=== PATIENT | female | born 1960 | race Caucasian/White ===

== ENCOUNTER 2016-05-28 08:34 | Inpatient (IN) ==
[2016-05-28] MEDS ORDERED: VANCOMYCIN 1 GM/NS 1 GM/250 ML IVPB ONE (09:32)
[2016-05-28] MEDS ORDERED: LR 1,000 ML ONE (09:32)
[2016-05-28] MEDS ORDERED: NAROPIN 0.5% ONE (11:36)
[2016-05-28] MEDS: DILAUDID ONE ×4 (12:38→13:23)
[2016-05-28] MEDS ORDERED: LR 500 ML ONE (12:43)
[2016-05-28] MEDS ORDERED: VERSED ONE (13:31)
[2016-05-28] MEDS ORDERED: FENTANYL ONE (13:31)
[2016-05-28] MEDS ORDERED: DIPRIVAN 1% ONE (13:31)
[2016-05-28] MEDS ORDERED: NS 1,000 ML ONE (13:40)
[2016-05-28] MEDS ORDERED: ZOFRAN IV PRN (13:53)
[2016-05-28] MEDS ORDERED: XYLOCAINE-MPF 2% ONE (13:54)
[2016-05-28] MEDS: NS 1,000 ML IV SCH (14:30)
[2016-05-28] MEDS: NICODERM PATCH TD SCH (16:01)
--- NOTE | 2016-05-28 16:22 | OPERATIVE NOTE ---
PROCEDURE DATE: 05/28/2016 PROCEDURE: 1. Incision and drainage of left great toe subcutaneous abscess. 2. Excision of portion of ingrown nail laterally. SURGEON: Atul Cleveland MD. TEACHING DIETITIAN: Rose. PREOPERATIVE DIAGNOSIS: Infected left great toe with ingrown nail, lateral aspect. POSTOPERATIVE DIAGNOSIS: Infected left great toe with ingrown nail, lateral aspect. DESCRIPTION OF PROCEDURE: Satisfactory general anesthesia was achieved. A digital block was also used for pain relief by the anesthesiologist. The left foot was prepped and draped in a sterile fashion. There was contained pus underneath the skin at the lateral aspect of the nail distally. We incised that skin, exposed the underlying pus and cultured it. We excised away the overlying skin. Because of the ischemia to her toe, I chose not to excise any tissue or do any dissection of the lateral eponychium. We simply spread underneath the eponychium laterally and then slid a hemostat underneath the nail. We incised the nail all the way to its proximal extent and removed it. This thereby relieved the ingrowing of the nail underneath the tissue. I did not do any curetting. Did not incise the soft tissue in any way. We irrigated out the wound. We then covered with Xeroform gauze, followed by sterile 3 inch [place]. She tolerated it well. She was sent to the recovery room in satisfactory condition. cc: Atul Cleveland MD
[2016-05-28] MEDS: AMBIEN PO SCH (20:47)
[2016-05-28] MEDS: REQUIP PO SCH (20:47)
[2016-05-28] MEDS: NORCO-10 PO PRN (20:47)
[2016-05-28] MEDS: ZOCOR PO SCH (20:47)
[2016-05-28] MEDS: XANAX PO SCH (20:48)
[2016-05-28] MEDS: VANCOMYCIN 1 GM/NS 1 GM/250 ML IVPB IV SCH (23:56)
[2016-05-29] MEDS: NORCO-10 PO PRN ×3 (01:57→11:20)
[2016-05-29] MEDS: NS 1,000 ML IV SCH (06:52)
[2016-05-29] MEDS: NICODERM PATCH TD SCH (08:50)
[2016-05-29] MEDS: LOTENSIN PO SCH (08:51)
[2016-05-29] MEDS: SINGULAIR PO SCH (08:51)
[2016-05-29] MEDS: NORVASC PO SCH (08:51)
[2016-05-29] MEDS: JANUVIA PO SCH (08:51)
[2016-05-29] MEDS: ASPIRIN PO SCH (08:51)
[2016-05-29] MEDS: MOVANTIK PO SCH (08:51)
[2016-05-29] MEDS: LEVEMIR SUBQ SCH (08:52)
[2016-05-29] MEDS ORDERED: INSULIN PEN NEEDLES ONE (08:56)
[2016-05-29] MEDS: FLONASE NAS SCH (08:58)
[2016-05-29] MEDS ORDERED: REQUIP PO SCH (09:00)
[2016-05-29] MEDS: XANAX PO SCH ×2 (12:10→22:09)
[2016-05-29] MEDS: VANCOMYCIN 1 GM/NS 1 GM/250 ML IVPB IV SCH ×2 (13:19→23:22)
[2016-05-29] MEDS: BUPRENEX IV PRN ×2 (13:45→19:57)
[2016-05-29] MEDS: AMBIEN PO SCH (22:09)
[2016-05-29] MEDS: REQUIP PO SCH (22:09)
[2016-05-29] MEDS: ZOCOR PO SCH (22:09)
[2016-05-29] MEDS ORDERED: DIFLUCAN PO ONE (23:04)
[2016-05-30] MEDS: NS 1,000 ML IV SCH ×2 (04:00→22:13)
[2016-05-30] MEDS: NORCO-10 PO PRN ×3 (04:04→18:03)
[2016-05-30] MEDS ORDERED: DIFLUCAN PO ONE (04:15)
[2016-05-30 06:13] LABS: MANUAL DIFF NEEDED? NO
[2016-05-30] MEDS: BUPRENEX IV PRN (06:16)
[2016-05-30 06:18] LABS: BASO% 0.3 % (0.0-0.8); EOS# 0.21 X1000 (0.0-0.7); EOS% 2.1 % (0.0-10.0); HEMATOCRIT 35.2 % (37.0-47.0); HEMOGLOBIN 11.7 g/dL (12.0-16.0); IMM GRAN# 0.02 X1000 (0.0-0.04); IMM GRAN% 0.2 % (0.0-0.5); LYMPH% 34.7 % (20.5-51.1); MCH 30.5 PG (27-31); MCHC 33.2 g/dL (33-37); MCV 91.7 FL (81-99); MONO% 8.2 % (1.7-9.3); MPV 10.1 FL (7.4-10.4); NEUT% 54.5 % (42.2-75.2); PLT 293 X1000 (130-400); RBC 3.84 XMIL (4.2-5.4)
[2016-05-30 06:43] LABS: AGAP 11; BUN 11 mg/dL (8-22); CALCIUM 8.4 mg/dL (8.8-10.2); CHLORIDE 106 mmol/L (98-107); COSMO 284; POTASSIUM 3.1 mmol/L (3.5-5.1); SODIUM 141 mmol/L (136-145); TCO2 24 mmol/L (25-35)
[2016-05-30] MEDS: JANUVIA PO SCH ×2 (07:57→12:53)
[2016-05-30] MEDS: ASPIRIN PO SCH ×2 (07:58→12:49)
[2016-05-30] MEDS: NORVASC PO SCH ×2 (07:58→12:51)
[2016-05-30] MEDS: MOVANTIK PO SCH ×2 (07:58→08:05)
[2016-05-30] MEDS: SINGULAIR PO SCH ×2 (07:58→12:50)
[2016-05-30] MEDS: LOTENSIN PO SCH ×2 (07:58→12:53)
[2016-05-30] MEDS: FLONASE NAS SCH ×2 (07:58→12:54)
[2016-05-30] MEDS: NICODERM PATCH TD SCH ×2 (07:58→12:52)
[2016-05-30] MEDS: XANAX PO SCH ×2 (07:59→22:12)
[2016-05-30] MEDS: LEVEMIR SUBQ SCH (08:00)
[2016-05-30] MEDS: VANCOMYCIN 1 GM/NS 1 GM/250 ML IVPB IV SCH (11:26)
[2016-05-30] MEDS: REQUIP PO SCH (22:12)
[2016-05-30] MEDS: AMBIEN PO SCH (22:13)
[2016-05-30] MEDS: ZOCOR PO SCH (22:15)
[2016-05-31] MEDS: VANCOMYCIN 1 GM/NS 1 GM/250 ML IVPB IV SCH ×3 (00:27→22:51)
[2016-05-31] MEDS: NS 1,000 ML IV SCH ×2 (03:00→18:43)
[2016-05-31] MEDS: NORCO-10 PO PRN ×4 (03:01→21:44)
[2016-05-31] MEDS: SINGULAIR PO SCH (08:49)
[2016-05-31] MEDS: JANUVIA PO SCH (08:49)
[2016-05-31] MEDS: NORVASC PO SCH (08:49)
[2016-05-31] MEDS: ASPIRIN PO SCH (08:50)
[2016-05-31] MEDS: MOVANTIK PO SCH (08:51)
[2016-05-31] MEDS: FLONASE NAS SCH (08:51)
[2016-05-31] MEDS: LEVEMIR SUBQ SCH (08:51)
[2016-05-31] MEDS: LOTENSIN PO SCH (08:52)
[2016-05-31] MEDS: NICODERM PATCH TD SCH (08:53)
[2016-05-31] MEDS: XANAX PO SCH ×2 (09:02→21:44)
[2016-05-31] MEDS: REQUIP PO SCH (21:44)
[2016-05-31] MEDS: ZOCOR PO SCH (21:44)
[2016-05-31] MEDS: AMBIEN PO SCH (21:44)
[2016-06-01] MEDS: BUPRENEX IV PRN ×6 (02:01→23:54)
[2016-06-01] MEDS: NS 1,000 ML IV SCH (02:42)
[2016-06-01] MEDS: FLONASE NAS SCH (08:57)
[2016-06-01] MEDS: NICODERM PATCH TD SCH (08:57)
[2016-06-01] MEDS: LOTENSIN PO SCH (09:00)
[2016-06-01] MEDS: JANUVIA PO SCH (09:00)
[2016-06-01] MEDS: MOVANTIK PO SCH (09:00)
[2016-06-01] MEDS: ASPIRIN PO SCH (09:00)
[2016-06-01] MEDS: NORVASC PO SCH (09:00)
[2016-06-01] MEDS: SINGULAIR PO SCH (09:00)
[2016-06-01] MEDS: LEVEMIR SUBQ SCH (09:00)
[2016-06-01] MEDS: XANAX PO SCH ×2 (09:00→21:18)
[2016-06-01] MEDS: VANCOMYCIN 1 GM/NS 1 GM/250 ML IVPB IV SCH ×2 (10:31→22:17)
[2016-06-01] MEDS ORDERED: HEPARIN ONE ×2 (14:51→14:52)
[2016-06-01] MEDS ORDERED: NS 2,000 ML ONE (14:52)
[2016-06-01 17:29] LABS: URINE MICRO REVIEW NEEDED? NO; URINE SOURCE CATH
[2016-06-01 17:33] LABS: BILIRUBIN URINE NEGATIVE (NEGATIVE); BLOOD URINE NEGATIVE (NEGATIVE); COLOR STRAW; GLUCOSE URINE NEGATIVE (NEGATIVE); LEUKOCYTES URINE NEGATIVE (NEGATIVE); NITRITE URINE NEGATIVE (NEGATIVE); PROTEIN URINE NEGATIVE (NEGATIVE); SP GRAVITY URINE 1.009; TURBIDITY URINE CLEAR (CLEAR); UR EPITHELIAL CELLS <10 /HPF (<10); URINE BACTERIA NEGATIVE /HPF; URINE RBC <10 /HPF (<10); URINE WBC <10 /HPF (<10); UROBILINOGEN URINE NORMAL (NORMAL)
[2016-06-01] MEDS ORDERED: NS 1,000 ML IV SCH (18:02)
[2016-06-01] MEDS ORDERED: DIPRIVAN 1% ONE (18:15)
[2016-06-01] MEDS: MORPHINE ONE ×2 (18:28→18:36)
[2016-06-01] MEDS: AMBIEN PO SCH (21:17)
[2016-06-01] MEDS: REQUIP PO SCH (21:17)
[2016-06-01] MEDS: ZOCOR PO SCH (21:18)
[2016-06-01] MEDS ORDERED: BLISTEX MEDICATED BERRY LIP BALM TOP PRN (21:20)
[2016-06-01] MEDS: PERIDEX MT SCH (22:17)
[2016-06-01] MEDS: NORCO-10 PO PRN (22:18)
[2016-06-02] MEDS: NORCO-10 PO PRN (03:13)
--- NOTE | 2016-06-02 05:09 | OPERATIVE NOTE ---
PROCEDURE DATE: 06/01/2016 PROCEDURE: 1. Diagnostic aortogram; percutaneous balloon angioplasty of the distal aorta. 2. Percutaneous left common iliac stent placement with a 7 x 29 Cat Stent. SURGEON: Atul Cleveland MD. PRINTED CIRCUIT BOARD DESIGNER: Maulik Munguia MD, who has assisted in access and balloon angioplasty. PREOPERATIVE DIAGNOSIS: Recurrent claudication. POSTOP DIAGNOSIS: Aortic in-stent occlusion; left common iliac stenosis. DESCRIPTION OF PROCEDURE: After satisfactory general endotracheal anesthesia, the abdomen and groins were prepped and draped in a sterile fashion. We imaged the right common femoral with ultrasound. Made a small stab incision and accessed the right common femoral artery. Passed the 6-Faroese sheath. We then passed a Glidewire, which would not traverse the aorta. We then used a trailblazer and was able to traverse the aortic occlusion into the proximal aorta. We then switched from the Trailblazer to a pigtail and shot the aortogram. This showed occlusion of the aorta inside this previously placed stent, as well as the left common iliac stenosis. We then went back to her Glidewire and then serially dilated the aortic occlusion with a 6, then an 8, then a 10 x 4 Powerflex balloon. We then accessed the left common femoral with ultrasound guidance and passed a 6-Faroese sheath. We passed the Glidewire up the aorta and then chose a 6 x 4 balloon and ballooned the proximal common iliac but this did not provide significant resolution of the proximal common iliac stenosis. So, we then chose a 7 x 29 Cat balloon expandable stent and passed it up to the bifurcation and deployed it. We then replaced our pigtail and shot a completion aortogram. This showed satisfactory improvement in the in-stent occlusion. Now there was obvious lumen. It did not completely normalize, but it was significantly improved. The patient already had a stent in the aorta and I chose not to Re stent it. The left common iliac stenosis was resolved with the 7 mm stent. We removed our wires and pigtail catheter. We used a Mynx closure plugs on both sides and then after they were appropriately deployed we then applied pressure dressings. She tolerated the procedure satisfactorily. A total of 95 mL of contrast was used. ESTIMATED BLOOD LOSS: Was 25 mL. cc: Atul Cleveland MD
[2016-06-02 06:10] LABS: MANUAL DIFF NEEDED? NO
[2016-06-02 06:25] LABS: BASO% 0.2 % (0.0-0.8); EOS# 0.21 X1000 (0.0-0.7); EOS% 1.7 % (0.0-10.0); HEMATOCRIT 34.6 % (37.0-47.0); HEMOGLOBIN 11.5 g/dL (12.0-16.0); IMM GRAN# 0.02 X1000 (0.0-0.04); IMM GRAN% 0.2 % (0.0-0.5); LYMPH# 2.24 X1000 (1.2-3.4); LYMPH% 18.2 % (20.5-51.1); MCH 30.5 PG (27-31); MCHC 33.2 g/dL (33-37); MCV 91.8 FL (81-99); MONO% 8.1 % (1.7-9.3); MPV 10.1 FL (7.4-10.4); NEUT% 71.6 % (42.2-75.2); PLT 296 X1000 (130-400); RBC 3.77 XMIL (4.2-5.4)
[2016-06-02 06:27] LABS: AGAP 13; BUN 7 mg/dL (8-22); CALCIUM 8.2 mg/dL (8.8-10.2); CHLORIDE 100 mmol/L (98-107); COSMO 273; POTASSIUM 3.3 mmol/L (3.5-5.1); SODIUM 137 mmol/L (136-145); TCO2 24 mmol/L (25-35)
[2016-06-02] MEDS: FLONASE NAS SCH (08:13)
[2016-06-02] MEDS: LOTENSIN PO SCH (08:14)
[2016-06-02] MEDS: NORVASC PO SCH (08:15)
[2016-06-02] MEDS: ASPIRIN PO SCH (08:16)
[2016-06-02] MEDS: SINGULAIR PO SCH (08:16)
[2016-06-02] MEDS: MOVANTIK PO SCH (08:17)
[2016-06-02] MEDS: XANAX PO SCH (08:18)
[2016-06-02] MEDS: JANUVIA PO SCH (08:19)
[2016-06-02] MEDS: NICODERM PATCH TD SCH (08:19)
[2016-06-02] MEDS: PERIDEX MT SCH (08:20)
[2016-06-02] MEDS: BUPRENEX IV PRN ×2 (08:20→14:12)
[2016-06-02] MEDS: LEVEMIR SUBQ SCH (08:22)
[2016-06-02] MEDS ORDERED: ROBINUL ONE (09:51)
[2016-06-02] MEDS ORDERED: HEPARIN ONE (09:51)
[2016-06-02] MEDS ORDERED: NS 250 ML ONE (09:51)
[2016-06-02] MEDS ORDERED: PIGGYBACK SET 7393 ONE (09:51)
[2016-06-02] MEDS ORDERED: NEOSTIGMINE ONE (09:51)
[2016-06-02] MEDS ORDERED: ZOFRAN ONE (09:51)
[2016-06-02] MEDS ORDERED: EXTENSION SET 32 IN 4522 ONE (09:51)
[2016-06-02] MEDS ORDERED: ANESTHESIA PB SET 88 IN 5742 ONE (09:51)
[2016-06-02] MEDS ORDERED: ZEMURON ONE (09:51)
[2016-06-02] MEDS ORDERED: QUELICIN (DOSE) ONE (09:51)
[2016-06-02] MEDS ORDERED: XYLOCAINE-MPF 2% ONE (09:51)
[2016-06-02] MEDS ORDERED: LR 1,000 ML ONE (09:55)
[2016-06-02] MEDS: VANCOMYCIN 1 GM/NS 1 GM/250 ML IVPB IV SCH (10:37)
[2016-06-02 11:58] VITALS: BP 132/57
--- NOTE | 2016-06-19 21:00 | DISCHARGE SUMMARY ---
ADMISSION DATE: 05/28/2016 DISCHARGE DATE: 06/02/2016 PRIMARY DISCHARGE DIAGNOSES: 1. Aortic occlusion. 2. Left common iliac stenosis. 3. Infected left great toe with ingrown toenail. 4. Nicotine dependence. 5. Significant peripheral vascular disease. PRIMARY PROCEDURE: 1. Excision of ingrown toenail laterally. 2. Incision and drainage of left great toe subcutaneous abscess on 05/28/2016. 3. On 06/01/2016, diagnostic aortogram, percutaneous balloon angioplasty of the distal aorta and percutaneous left common iliac stent placement with a 7 x 29 Cat stent. HISTORY: This is a 56-year-old smoker who has had previous distal aortic stents. She now complains once again of claudication in both legs. She also has an infection of her great toe with an ingrown nail. HOSPITAL COURSE: She was admitted and the lateral portion of the nail was removed and the subcutaneous abscess was drained. I knew that this would not heal unless we improved flow. 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 Now though since she was on vancomycin because of her toe we were able to get her groin good enough to take her back to the operating room and do a diagnostic aortogram revealing an occlusion in the distal aorta and left common iliac stenosis. We were able to balloon the distal aorta open and extend her left common iliac thereby providing excellent flow in both legs even all the way to her feet. Postoperatively she did well, she had distal pulses and she could tell on obvious difference in her legs with dorsalis pedis pulses bilaterally. She was discharged home on 06/02 and was instructed to return to the office in followup. She was discharged home on clindamycin 150 mg every 6 hours and she is to resume her other medicines. cc: Atul Cleveland MD
== END 2016-06-02 15:48 | disposition home or self-care (01) ==
LOC: 4N 08:34 → OR 08:34 → OBSVTOIN 13:07
PROVIDERS: ADMIT Surgery; ATTEND Surgery

== ENCOUNTER 2019-03-16 07:59 | Inpatient (IN) ==
[2019-03-16] MEDS ORDERED: NS 1,000 ML IV ONE (08:38)
[2019-03-16] MEDS ORDERED: HUMULIN R IV ONE (08:44)
[2019-03-16] MEDS ORDERED: HUMULIN R (PARKWAY) 100 UNITS in NS 100 ML IV SCH (08:45)
--- NOTE | 2019-03-16 08:50 | EKG Report ---
Test Performed on : 03/16/2019 08:47:10 AM Test Reason : diabetes Blood Pressure : / mmHG Vent. Rate : 084 BPM Atrial Rate : 084 BPM P-R Int : 138 ms QRS Dur : 084 ms QT Int : 398 ms P-R-T Axes : 062 051 050 degrees QTc Int : 470 ms Normal sinus rhythm. Possible Left atrial enlargement Borderline ECG When compared with ECG of 23-JUL-2017 18:06, No significant change was found Unconfirmed Result
[2019-03-16 08:53] LABS: URINE SOURCE CLEAN CATCH
[2019-03-16] MEDS ORDERED: HUMULIN R (PARKWAY) ONE (08:53)
[2019-03-16 09:01] LABS: BILIRUBIN URINE NEGATIVE (NEGATIVE); BLOOD URINE NEGATIVE (NEGATIVE); COLOR YELLOW; GLUCOSE URINE >1000 mg/dL (NEGATIVE); KETONE URINE TRACE mg/dL (NEGATIVE); LEUKOCYTES URINE LARGE (NEGATIVE); NITRITE URINE NEGATIVE (NEGATIVE); PH URINE 6.5; PROTEIN URINE 100 mg/dL (NEGATIVE); SP GRAVITY URINE 1.028; TURBIDITY URINE CLEAR (CLEAR); UR EPITHELIAL CELLS <10 /HPF (<10); URINE BACTERIA NEGATIVE /HPF; URINE RBC <10 /HPF (<10); URINE WBC TNTC /HPF (<10); UROBILINOGEN URINE NORMAL (NORMAL)
[2019-03-16 09:14] LABS: BE 1.2 mmoll (-3.0-3.0); BLOOD TYPE ARTERIAL; HCO3-(ACT) 25.5 mmoll (20.0-26.0); METHB 1.4 % (0.0-1.5); O2(CT) 18.4 mL/dL (15.0-23.0); PCO2(98.6) 37 mmHg (35-45); PO2(98.6) 69 mmHg (60-100); SAMPLE BLOOD; SAO2 96.6 % (95.0-100.0); THB 15.2 g/dL (11.5-17.4); pH(98.6) 7.44 (7.35-7.45)
[2019-03-16 09:24] LABS: CK TOTAL 54 U/L (24-173)
[2019-03-16 09:26] LABS: UR AMPHETAMINES QUAL NONE DETECTED (NONE DETECT); UR BARBITUATES QUAL NONE DETECTED (NONE DETECT); UR BENZODIAZEPIN QUAL NONE DETECTED (NONE DETECT); UR CANNABINOIDS QUAL PRESUMPTIVE POSITIVE (NONE DETECT); UR COCAINE QUAL NONE DETECTED (NONE DETECT); UR METHADONE QUAL NONE DETECTED (NONE DETECT); UR METHAMPHETAMINE QUAL NONE DETECTED (NONE DETECT); UR OPIATES QUAL NONE DETECTED (NONE DETECT); UR OXYCODONE QUAL NONE DETECTED (NONE DETECT); UR PCP QUAL NONE DETECTED (NONE DETECT); UR PROPOXYPHENE QUAL NONE DETECTED (NONE DETECT); UR TCA QUAL NONE DETECTED (NONE DETECT)
[2019-03-16 09:27] LABS: ESTIMATED GFR > 60
[2019-03-16] MEDS ORDERED: VASOTEC IV ONE (09:27)
[2019-03-16 09:31] LABS: BASO# 0.05 X1000 (0.0-0.2); BASO% 0.5 % (0.0-0.8); EOS# 0.09 X1000 (0.0-0.7); EOS% 0.9 % (0.0-10.0); HEMATOCRIT 47.1 % (37.0-47.0); HEMOGLOBIN 15.9 g/dL (12.0-16.0); IMM GRAN# 0.02 X1000 (0.0-0.04); IMM GRAN% 0.2 % (0.0-0.5); LYMPH# 2.31 X1000 (1.2-3.4); LYMPH% 22.8 % (20.5-51.1); MCH 29.6 PG (27-31); MCHC 33.8 g/dL (33-37); MCV 87.7 FL (81-99); MONO# 0.63 X1000 (0.11-0.59); MONO% 6.2 % (1.7-9.3); MPV 10.8 FL (7.4-10.4); NEUT# 7.05 X1000 (1.4-6.5); NEUT% 69.4 % (42.2-75.2); PLT 348 X1000 (130-400); RBC 5.37 XMIL (4.2-5.4); RDW 12.8 % (11.5-14.5); WBC 10.15 X1000 (4.8-10.8)
[2019-03-16 09:36] LABS: ACETONE SERUM NEGATIVE (NEGATIVE)
[2019-03-16 09:38] LABS: CHLORIDE 92 mmol/L (98-107); POTASSIUM 4.2 mmol/L (3.5-5.1); SODIUM 133 mmol/L (136-145)
[2019-03-16 09:39] LABS: AGAP 19; ALBUMIN 4.2 g/dL (3.5-5.0); ALKALINE PHOSPHATASE 141 U/L (32-104); BUN 9 mg/dL (8-22); CALCIUM 9.2 mg/dL (8.8-10.2); COSMO 288; CREATININE 0.7 mg/dL (0.5-0.9); GLUCOSE 517 mg/dL (70-104); GOT 18 U/L (10-30); GPT 20 U/L (10-36); MAGNESIUM 1.9 mg/dL (1.5-2.7); TCO2 23 mmol/L (25-35); TOTAL PROTEIN 7.8 g/dL (6.3-8.3)
--- NOTE | 2019-03-16 09:39 | PROVIDER DOCUMENTATION ---
HPI-General Adult - General Chief Complaint: DKA ALERT Stated Complaint: WEAKNESS Time Seen by Provider: 03/16/19 08:24 Source: patient Allergies/Adverse Reactions: Patient Allergies Allergy/AdvReac Type Severity Reaction Status Date / Time No Known Allergies Allergy Verified 01/09/17 20:25 Home Medications: Home Medication List Medication Instructions Recorded Confirmed Last Taken Type Insulin Detemir [Levemir] 70 unit SQ DAILY 09/01/14 05/28/16 05/27/16 10:00 History Ropinirole [Requip] 1 mg PO DAILY 09/01/14 10/25/18 05/27/16 10:00 History Fluticasone 50 Mcg Nasal [place] 2 spray INH DAILY 07/26/15 10/25/18 05/27/16 10:00 History [Flonase] Sitagliptin Phosphate [Januvia] 100 mg PO DAILY 07/26/15 10/25/18 05/27/16 10:00 History Amlodipine [Norvasc] 10 mg PO DAILY 05/04/16 10/25/18 05/27/16 10:00 History Aspirin 81 mg PO DAILY 05/04/16 10/25/18 3 Weeks Ago History ~05/07/16 Benazepril HCl 40 mg PO DAILY 05/04/16 10/25/18 05/27/16 10:00 History Montelukast Sodium 10 mg PO DAILY 05/04/16 05/28/16 05/27/16 10:00 History Naloxegol Oxalate [Movantik] 25 mg PO DAILY 05/04/16 05/28/16 05/27/16 10:00 History SIMVAstatin [Zocor] 20 mg PO QHS 05/04/16 10/25/18 05/27/16 22:00 History Zolpidem Tartrate 10 mg PO HS 05/04/16 05/28/16 05/27/16 22:00 History Clindamycin [Cleocin] 150 mg PO Q6HR #20 capsule 06/02/16 Unknown Rx Hydrocodone/Acetaminophen [[place] 1 each PO 4XDAY #20 tablet 06/02/16 10/25/18 Unknown Rx 10-325 Tablet] Meloxicam [Mobic] 15 mg PO DAILY #10 tab 10/25/18 Unknown Rx - History of Present Illness -Gen Adult Nature of Presenting Problems: Pt is a 59 y/o female who presents with c/o weakness, elevated blood sugars and decreased appetite. As per the pt, she has been having high BS for past few days and today it was more than 500. Pt has been feeling weak and tired. Denies any fever or chills or URI or abd symptoms or CP or SOB or dizziness or lightheadedness or focal weakness. Pt has been to her retina specialist yesterday due to her vision problems. Pt has been non compliant with her meds, says she has been out of her diabetes and HTN meds. Review of Systems - Adult - REVIEW OF SYSTEMS - ADULT Constitutional: reports: fatique Eyes: reports: see HPI Ears, Nose, Mouth & Throat: denies: no symptoms reported Cardiovascular: denies: no symptoms reported Respiratory: denies: no symptoms reported Gastrointestinal: reports: see HPI Genitourinary: denies: no symptoms reported Musculoskeletal: denies: no symptoms reported Integumentary: denies: no symptoms reported Neurological: denies: no symptoms reported Psychiatric: denies: no symptoms reported Endocrine: reports: see HPI Hematologic/Lymphatic: denies: no symptoms reported Allergic/Immunologic: denies: no symptoms reported All Other Systems: Reviewed and Negative Past History - Adult - PAST MEDICAL HISTORY-ADULT Review of Records: reports: Nursing Assessment Review, Medications Reviewed, Social history reviewed & non-contributory. Major Childhood Illnesses: reports: denies history Cardiovascular: reports: cardiac disease, HTN, hyperlipidemia Respiratory: reports: denies history Gastrointestinal: reports: denies history Obstetrical/Gynecological: reports: denies history Genitourinary: reports: denies history Musculoskeletal: reports: denies history Neurological: reports: denies history Endocrine/Immune: reports: Diabetes Other Conditions: reports: denies history - PRIOR SURGERIES/PROCEDURES Surgical/Procedure History: reports: appendectomy, cardiac stent (x2), hysterectomy - PRIOR HOSPITALIZATIONS Prior Hospitalizations: reports: for other non-related - IMMUNIZATION STATUS Childhood Immunizations: See Nurse Assessment Flu Vaccine: See Nurse Assessment - FAMILY HISTORY Family History: reviewed, not pertinent Physical Exam-General - PHYSICAL EXAM-ADULT Initial Vital Signs Reviewed: Yes - CONSTITUTIONAL General Appearance: alert - EYES Eyes: PERRL/EOMI - HEAD, EARS, NOSE, MOUTH & THROAT HENMT: normocephalic/atraumatic, moist mucous membranes, normal ENT inspection, pharynx normal - NECK Neck: supple - RESPIRATORY Respiratory: lungs clear, normal breath sounds, no respiratory distress, no accessory muscle use - CARDIOVASCULAR Cardiovascular: normal peripheral pulses, regular rate, rhythm, no edema, no murmur - GASTROINTESTINAL (ABDOMEN) Abdominal Exam: non tender, soft - MUSCULOSKELETAL Back Exam: no CVA tenderness, no vertebral tenderness Extremity: no pedal edema Peripheral Pulses: radial (R): 2+, radial (L): 2+ - SKIN Integumentary: warm/dry - NEUROLOGIC Neurologic: grossly normal - PSYCHIATRIC Psych/Mental Status: normal mood/affect, normal thought content Progress - PLAN OF CARE/RESULTS Progress/Plan/Lab Results: Vital Signs - 8 hr 03/16/19 08:13 03/16/19 08:36 03/16/19 09:24 Temperature 98 F 97.7 F Pulse Rate 91 H 79 Respiratory Rate 18 20 Blood Pressure 222/113 210/100 221/92 O2 Sat by Pulse Oximetry 97 96 Laboratory Results - last 24 hr 03/16/19 03/16/19 03/16/19 08:12 08:30 08:30 WBC 10.15 RBC 5.37 Hgb 15.9 Hct 47.1 H MCV 87.7 MCH 29.6 MCHC 33.8 RDW Std Deviation 12.8 Plt Count 348 MPV 10.8 H Immature Gran % (Auto) 0.2 Neut % (Auto) 69.4 Lymph % (Auto) 22.8 [place] % (Auto) 6.2 Eos % (Auto) 0.9 Baso % (Auto) 0.5 Immature Gran # (Auto) 0.02 Neut # (Auto) 7.05 H Lymph # (Auto) 2.31 [place] # (Auto) 0.63 H Eos # (Auto) 0.09 Baso # (Auto) 0.05 Estimated GFR/1.73 m2 POC Glucose 451 H Phosphorus 3.0 Creatine Kinase 54 Troponin T High Sens Plasma Lactate Urine Source Urine Color Urine Turbidity Urine pH Ur Specific [place] Urine Protein Ur Glucose (Stick) Ur Ketones (Stick) Urine Blood Urine Nitrite Urine Bilirubin Urobilinogen Dipstick Urine Leukocytes Urine WBC (Auto) Urine RBC (Auto) U Epithel Cells (Auto) Urine Bacteria (Auto) Urine Opiates Screen Ur Oxycodone Screen Urine Methadone Screen U Propoxyphene Qual Ur Barbituates Screen Ur Tricyclics Screen Ur Phencyclidine Scrn Ur Amphetamines Screen U Methamphetamines Scrn U Benzodiazepines Scrn Urine Cocaine Screen U Cannabinoids Screen 03/16/19 03/16/19 03/16/19 08:30 08:30 08:30 WBC RBC Hgb Hct MCV MCH MCHC RDW Std Deviation Plt Count MPV Immature Gran % (Auto) Neut % (Auto) Lymph % (Auto) [place] % (Auto) Eos % (Auto) Baso % (Auto) Immature Gran # (Auto) Neut # (Auto) Lymph # (Auto) [place] # (Auto) Eos # (Auto) Baso # (Auto) Estimated GFR/1.73 m2 > 60 POC Glucose Phosphorus Creatine Kinase Troponin T High Sens 7 Plasma Lactate 1.5 Urine Source Urine Color Urine Turbidity Urine pH Ur Specific [place] Urine Protein Ur Glucose (Stick) Ur Ketones (Stick) Urine Blood Urine Nitrite Urine Bilirubin Urobilinogen Dipstick Urine Leukocytes Urine WBC (Auto) Urine RBC (Auto) U Epithel Cells (Auto) Urine Bacteria (Auto) Urine Opiates Screen Ur Oxycodone Screen Urine Methadone Screen U Propoxyphene Qual Ur Barbituates Screen Ur Tricyclics Screen Ur Phencyclidine Scrn Ur Amphetamines Screen U Methamphetamines Scrn U Benzodiazepines Scrn Urine Cocaine Screen U Cannabinoids Screen 03/16/19 03/16/19 08:30 08:30 WBC RBC Hgb Hct MCV MCH MCHC RDW Std Deviation Plt Count MPV Immature Gran % (Auto) Neut % (Auto) Lymph % (Auto) [place] % (Auto) Eos % (Auto) Baso % (Auto) Immature Gran # (Auto) Neut # (Auto) Lymph # (Auto) [place] # (Auto) Eos # (Auto) Baso # (Auto) Estimated GFR/1.73 m2 POC Glucose Phosphorus Creatine Kinase Troponin T High Sens Plasma Lactate Urine Source CLEAN CATCH Urine Color YELLOW Urine Turbidity CLEAR Urine pH 6.5 Ur Specific [place] 1.028 Urine Protein 100 A Ur Glucose (Stick) >1000 A Ur Ketones (Stick) TRACE A Urine Blood NEGATIVE Urine Nitrite NEGATIVE Urine Bilirubin NEGATIVE Urobilinogen Dipstick NORMAL Urine Leukocytes LARGE A Urine WBC (Auto) TNTC A Urine RBC (Auto) <10 U Epithel Cells (Auto) <10 Urine Bacteria (Auto) NEGATIVE Urine Opiates Screen NONE DETECTED Ur Oxycodone Screen NONE DETECTED Urine Methadone Screen NONE DETECTED U Propoxyphene Qual NONE DETECTED Ur Barbituates Screen NONE DETECTED Ur Tricyclics Screen NONE DETECTED Ur Phencyclidine Scrn NONE DETECTED Ur Amphetamines Screen NONE DETECTED U Methamphetamines Scrn NONE DETECTED U Benzodiazepines Scrn NONE DETECTED Urine Cocaine Screen NONE DETECTED U Cannabinoids Screen PRESUMPTIVE POSITIVE A Orders Category Date Time Status Cardiac Monitoring DIRECTED Care 03/16/19 08:38 Active FSBS [Finger Stick Blood Sugar (ED)] Q1H PRN Care 03/16/19 08:17 Active Nursing- Obtain EKG ONCE Care 03/16/19 08:38 Active Saline Loc NOW Care 03/16/19 08:38 Active Use DKA Protocol (paper) ORDERED Care 03/16/19 08:29 Active Vital Signs Order Q1H Care 03/16/19 08:38 Active ABG [RESP] Routine Lab 03/16/19 08:38 Ordered ACETONE SERUM [CHEM] Stat Lab 03/16/19 08:30 Results CBC WITH ELECTRONIC DIFF [HEME] Stat Lab 03/16/19 08:30 Completed CK TOTAL [CHEM] Stat Lab 03/16/19 08:30 Results COMPREHENSIVE METABOLIC PANEL [CHEM] Stat Lab 03/16/19 08:30 Results LACTATE, PLASMA [CHEM] Stat Lab 03/16/19 08:30 Completed MAGNESIUM [CHEM] Stat Lab 03/16/19 08:30 Results PHOSPHORUS [CHEM] Stat Lab 03/16/19 08:30 Results TROPONIN T HIGH SENSITIVITY Stat Lab 03/16/19 08:30 Completed URINALYSIS W/POSS RFLX CULT [URINALYSIS] Stat Lab 03/16/19 08:30 Completed URINE DRUG SCREEN PL Stat Lab 03/16/19 08:30 Completed 0.9% Sodium Chloride Inj [Ns] 1,000 ml Med 03/16/19 08:38 Active IV 999 mls/hr 0.9% Sodium Chloride Inj [Ns] 100 ml Med 03/16/19 08:45 Active Insulin Human Regular ([place] [Humulin R ([place])] 100 units IV Per Protocol mls/hr Enalaprilat [Vasotec] Med 03/16/19 09:27 Discontinued 0.625 mg IV NOW ONE Insulin Human Regular ([place] [Humulin R ([place])] Med 03/16/19 08:53 Discontinued 5 units .ROUTE .STK-MED ONE Insulin Human Regular [Humulin R] Med 02/06/20 08:44 Discontinued 5 unit IV NOW ONE EKG [EKG] Stat Ther 03/16/19 08:38 Draft Result Diagrams: 03/16/19 08:30 03/16/19 08:30 - EKG 1 Time of EKG reading by physician:: 08:47 EKG Interpretation (*Must complete 3 of following elements*): Normal Rate: 84 [place]: normal QRS: normal OR Interval: normal ST Wave: normal Comments: NSR - CONSULTS/PCP/HOSPITALIST Notification #1 *Consult/PCP/Hospitalist*: d/w Buffy for Dr Kenney Time Discussed: 09:55 Consult Disposition: Will see in ED, Admit Departure - Departure Date of Disposition Decision: 03/16/19 Time of Disposition Decision: 09:54 DIAGNOSIS: Hyperglycemia due to type 2 diabetes mellitus, Uncontrolled hypertension, UTI (urinary tract infection), Non-compliance with treatment Disposition: ADMITTED INPATIENT 09 Certified Medical Emergency: Emergent Condition: Stable Referrals and Follow-Ups: Pablo Kenney MD [Primary Care Provider] - - Critical Care Note This patient required my direct & personal management of CC.: No Attestation - Physician/ TEODORO Attestation Patient care was provided by Advanced Practice Provider:: No The physician spent face to face time with patient:: Yes Advanced Practice Provider documentation review:: Supervising physician onsite and consulted in the evaluation and care of this patient. The physician did have a face to face encounter with the patient.
[2019-03-16] MEDS ORDERED: HUMALOG (PARKWAY) SUBQ ONE (09:48)
[2019-03-16] MEDS ORDERED: ROCEPHIN 1 GM in NS 50 ML IV ONE (09:53)
[2019-03-16 10:24] LABS: ALLEN TEST YES; MODALITY ROOM AIR; O2HB 86.2 % (95.0-99.0)
[2019-03-16] MEDS ORDERED: NORVASC PO ONE (11:16)
[2019-03-16] MEDS ORDERED: PRINIVIL PO ONE (11:16)
[2019-03-16] MEDS ORDERED: NICODERM PATCH TD PRN (11:20)
[2019-03-16] MEDS ORDERED: ASPIRIN PO SCH (11:30)
[2019-03-16] MEDS ORDERED: HUMULIN R (PARKWAY) SUBQ SCH (16:00)
[2019-03-16 16:01] VITALS: BP 156/62
[2019-03-16] MEDS ORDERED: GLUCOPHAGE PO SCH (17:00)
[2019-03-16] MEDS ORDERED: ROCEPHIN 1 GM in NS 50 ML IV SCH (17:00)
[2019-03-16] MEDS ORDERED: LANTUS INSULIN SUBQ ONE (19:12)
--- NOTE | 2019-03-16 19:48 | HISTORY AND PHYSICAL ---
CHIEF COMPLAINT: Weakness, elevated blood sugars. HISTORY OF PRESENT ILLNESS: This is a 59-year-old female with a history of hypertension, hyperlipidemia, CAD, and medical noncompliance. She presents to the ER complaining of weakness with elevated blood sugars and decreased appetite that have been present for many weeks. She states that blood sugars today were greater than 500. She does state that she is noncompliant with her medications, stating that she is out of her diabetes and hypertension medicines as she cannot afford them. Of note, she was seen by her retina vocational services specialist yesterday due to vision troubles. PAST MEDICAL HISTORY: 1. Diabetes mellitus. 2. Hypertension. 3. Generalized weakness. 4. Nausea and vomiting. 5. Coronary artery disease. 6. Gastroesophageal reflux disease. SOCIAL HISTORY: She smokes a pack a day. She uses marijuana. She denies any alcohol use. ALLERGIES: No known drug allergies. HOME MEDICATIONS: A list will be obtained by the nursing staff and once verified, will review and restart as appropriate. REVIEW OF SYSTEMS: Discussed with patient with pertinent positives stated in the HPI. She denied any syncope, any dizziness, any chest pain or palpitations, shortness of breath, cough, fever, chills, any diarrhea, constipation, black or bloody vomitus or stools, any hematuria, dysuria, frequency, urgency. PHYSICAL EXAMINATION: GENERAL: This is a 59-year-old female who is sitting up in the stretcher in the emergency room in no distress. VITAL SIGNS: Blood pressure is 221/92 with a heart rate of 79, respirations are 20, temperature is 97.7 degrees, with room air saturations 95 to 98 percent. Blood pressure is 181/93. HEENT: Head is normocephalic, atraumatic. Mucous membranes are moist. NECK: Supple with trachea midline. No JVD. CARDIOVASCULAR: Regular rate and rhythm. S1 and S2 are appreciated. Calves are nontender bilaterally with peripheral pulses palpable x4 extremities. No murmur heard. PULMONARY: Breath sounds are clear. No increased work of breathing noted. Chest rises and falls symmetrically with respiration. GASTROINTESTINAL: Abdomen is soft, nontender, nondistended with bowel sounds in all 4 quadrants. GENITOURINARY: No CVA or suprapubic tenderness. NEUROLOGIC: Alert and oriented x3. SKIN: Warm and dry. LABS: WBC is 10.1 with hemoglobin 15.9, hematocrit 41.7, with platelets of 348,000. Sodium 133, potassium 4.2, BUN 9, creatinine 0.7 with a glucose of 517. Urinalysis reveals large leukocytes, too numerous to count microscopic white blood cells, with greater than 1000 glucose and trace ketones. Urine drug screen is presumptive positive for cannabinoids. Acetone is negative. Urine culture is pending. ASSESSMENT AND PLAN: 1. Diabetes mellitus with hyperglycemia. 2. Uncontrolled hypertension. 3. Urinary tract infection. 4. Noncompliance with medication. 5. Coronary artery disease, status post percutaneous coronary intervention. Aware. 6. Blindness. 7. Continued nicotine abuse with tobacco use. 8. Cannabinoid use. PLAN: 1. The patient will be admitted to the medical-surgical floor. She will be placed on telemetry. 2. She was given Vasotec in the emergency room. We will restart her Norvasc and lisinopril and monitor vital signs. 3. Will pattern blood glucose with sliding scale insulin. 4. We will continue Rocephin and further antibiotics will be culture driven. 5. She will be placed on a diabetic diet. 6. Start a nicotine patch. 7. We will start metformin 500 mg p.o. b.i.d. and aspirin 81 mg. 8. Will repeat a CBC and CMP in the morning. 9. Further treatments pending hospital course. Plan was discussed with Dr. Kenney. Dictated by YOSSI Lofton for Pablo Kenney MD cc: YOSSI Lofton MD
--- NOTE | 2019-03-16 20:36 | HISTORY AND PHYSICAL ---
CHIEF COMPLAINT: Weakness. HISTORY OF PRESENT ILLNESS: The patient is a 59-year-old female who presented to the ER complaining of generalized weakness, elevated blood sugars and decreased appetite. She notes her blood sugar has been reading high for the past few days, and today read more than 400. She has been weak and tired. Denies fevers or chills. Does have some vision change. In fact, she followed up with a retina specialist yesterday due to her vision problems. He told her she needs to get more compliant with her medications. She states she has been out of her diabetes and hypertension medicines, but has not been out of her pain medications, so she has not followed up in the office. ALLERGIES: No known drug allergies. MEDICATIONS: 1. Levemir, although she is quite noncompliant in taking it due to cost. She has not previously told us this. 2. Requip. 3. Januvia. Again, does not take on a regular basis. 4. Norvasc. 5. Aspirin. 6. Benazepril 40. 7. Movantik. 8. Zocor. 9. [place] p.r.n. REVIEW OF SYSTEMS: As noted above. She has vision change that has been chronic, although it has been worse lately. Denies fevers, chills, cough. Does have shortness of breath, dyspnea on exertion and fatigue. Denies any true swelling in her lower extremities. Denies chest pain or palpitations. Denies constipation, melena, hematochezia or skin rashes. PAST MEDICAL HISTORY: Known coronary artery disease, hypertension, hyperlipidemia, diabetes. History of appendectomy, cardiac stenting x2, history of hysterectomy. She does have some blindness for which she sees a retina specialist. FAMILY HISTORY: Noncontributory. SOCIAL HISTORY: The patient does smoke. She denies fever. Denies alcohol or illicit substances. PHYSICAL EXAMINATION: VITAL SIGNS: Reviewed. Temperature 98 degrees, pulse 91. BP initially 222/113, currently 156/62. GENERAL: The patient is awake, pleasant. She is in no respiratory distress. HEENT: Normocephalic. NECK: Supple. CARDIOVASCULAR: Regular rate. CHEST: Clear, nonlabored. No wheezing. ABDOMEN: Soft, nondistended. EXTREMITIES: Moves all extremities. NEUROLOGIC: No changes. LABORATORY DATA: Sodium 133, bicarbonate 23, glucose 517. ASSESSMENT: 1. Hyperglycemia due to medical noncompliance and type 2 diabetes. 2. Poorly controlled hypertension. 3. Urinary tract infection. 4. Medical noncompliance. 5. Legal blindness. 6. Hypertension. 7. Known coronary artery disease. 8. High cholesterol. PLAN: We are going to continue the patient in the hospital on sliding scale insulin. We will restart home medications. We will ask Airconditioning Drafting Officer to assist in finding medications that she can afford. cc: Pablo Kenney MD
[2019-03-16] MEDS ORDERED: REQUIP PO SCH (21:00)
[2019-03-17] MEDS ORDERED: ROCEPHIN 1 GM in NS 50 ML IV SCH (10:00)
--- NOTE | 2019-03-18 00:25 | DISCHARGE SUMMARY ---
ADMISSION DATE: 03/16/2019 DISCHARGE DATE: 03/16/2019 DISCHARGE DIAGNOSES: 1. Medical noncompliance. 2. Diabetes with poor home control. The patient has not been taking her medications. 3. Chronic pain. 4. Chronic anxiety. 5. Hypertension. CONSULTATIONS: None. PROCEDURES: None. BRIEF HOSPITAL COURSE: The patient is a very unfortunate individual who has blindness that is being worsened by her intentional noncompliance with her diabetes. She was admitted to the hospital to attempt to get her blood sugars under better control. Unfortunately, after a few hours she refused to stay and left AMA. The patient was previously being seen in the office. However, due to her noncompliance she will be dismissed. cc: Pablo Kenney MD
--- NOTE | 2019-03-18 03:48 | DISCHARGE SUMMARY ---
ADMISSION DATE: 03/16/2019 DISCHARGE DATE: 03/16/2019 Patient left against medical advice. She stayed in the hospital only for a couple hours. Unfortunately, if she does not decide to take better care of herself and actually follow medical instructions she will likely be completely blind from her diabetes. No discharge planning, instructions or education was able to be done as patient left AMA. cc: Pablo Kenney MD
== END 2019-03-16 19:45 | disposition left against medical advice (07) | DRG 638 ==
LOC: P.ED 07:59 → P.MEDSURG 12:26
PROVIDERS: ATTEND Family Medicine